=== PATIENT | male | born 1995 | race Caucasian/White ===

== ENCOUNTER 2017-01-28 10:15 | Emergency (ER) | payer SELFPAY ==
[~2017-01-28] VITALS: Ht 200.7 cm; Wt 100.3 kg
[~2017-01-28 10:15] MED LIST: TRAM50TA PO
[2017-01-28 10:23] VITALS: BP 142/65; PULSE 72; RESP 16; TEMP 97.6; O2SAT 96
[2017-01-28] MEDS ORDERED: DICY20TA10 PO (10:52)
[2017-01-28] MEDS ORDERED: ZOFR4TAB3 SL (10:52)
--- NOTE | 2017-01-28 10:53 | PD ---
HPI Chief Complaint: Abdominal Pain Time Seen by Provider: 10:42 Travel History International Travel<30 days: No Contact w/Intl Traveler<30days: No Traveled to known affect area: No History of Present Illness HPI This 21-year-old male is complaining of abdominal pain and vomiting. He was having abdominal pain throughout the day yesterday. Is fairly constant pain that is worse when he coughs. He says he gets this quite often. He says he gets IT twice a month he's been told that he has a family history of stomach issues. He generally takes a nausea pill when he gets these symptoms. He says that he woke up at 8:00 this morning and have a lot of vomiting. PFSH Past Medical History ADHD: Yes Asthma: Yes Anxiety: No Depression: No Cancer: No Cardiovascular Problems: No Developmental Delay: No Diabetes: No Diminished Hearing: No Genitourinary: No Hiatal Hernia: No Musculoskeletal: No Neurologic: No Psychiatric: No Respiratory: No Immunizations Current: Yes Seizures: No Thyroid Disease: No Ulcer: No Tetanus Vaccination: < 5 Years Influenza Vaccination: Yes Past Surgical History Appendectomy: Yes Other Surgery: No Social History Alcohol Use: No Tobacco Use: Yes (1 PPD) Substance Use: Yes (marjuana) Allergies-Medications (Allergen,Severity, Reaction): Coded Allergies: No Known Allergies (Verified , 01/28/17) Reported Meds & Prescriptions Reported Meds & Active Scripts Active Review of Systems General / Constitutional: No: Fever, Chills Eyes: No: Diploplia, Blurred Vision HENT: No: Headaches, Vertigo Cardiovascular: No: Chest Pain or Discomfort, Palpitations Respiratory: No: Cough Gastrointestinal: Positive: Nausea, Vomiting, Abdominal Pain Genitourinary: No: Dysuria, Nocturia Skin: No Rash, No Itching Neurologic: No: Weakness, Dizziness Endocrine: No: Heat Intolerance Hematologic/Lymphatic: No: Easy Bruising Physical Exam Narrative GENERAL: Well-developed male SKIN: Focused skin assessment warm/dry. HEAD: Atraumatic. Normocephalic. EYES: Pupils equal and round. No scleral icterus. No injection or drainage. ENT: No nasal bleeding or discharge. Mucous membranes pink and moist. NECK: Trachea midline. No JVD. CARDIOVASCULAR: Regular rate and rhythm. No murmur appreciated. RESPIRATORY: No accessory muscle use. Clear to auscultation. Breath sounds equal bilaterally. GASTROINTESTINAL: Abdomen soft, non-tender, nondistended. Hepatic and splenic margins not palpable. I'm able to palpate all quadrants without eliciting any guarding or rigidity. Bowel sounds are active MUSCULOSKELETAL: No obvious deformities. No clubbing. No cyanosis. No edema. NEUROLOGICAL: Awake and alert. No obvious cranial nerve deficits. Motor grossly within normal limits. Normal speech. PSYCHIATRIC: Appropriate mood and affect; insight and judgment normal. Data Data Last Documented VS Vital Signs Date Time Temp Pulse Resp B/P (MAP) Pulse Ox O2 Delivery O2 Flow Rate FiO2 01/28/17 10:23 97.6 72 16 142/65 (90) 96 Orders Orders Ondansetron Odt (Zofran Odt) (01/28/17 11:00) Dicyclomine (Bentyl) (01/28/17 11:00) [facility] Medical Decision Making Medical Screen Exam Complete: Yes Emergency Medical Condition: Yes Medical Record Reviewed: Yes Differential Diagnosis Differential includes gastritis, appendicitis, viral syndrome Narrative Course I suggested we started an IV and check blood work and give some IV antiemetics however the patient is quite insistent that he does not want IV and that this is an exacerbation of his ongoing problem. He generally gets relief with Zofran and I will prescribe some Zofran for him Diagnosis Primary Impression: Vomiting Departure Forms: Tests/Procedures, Work Release Enter return to work date: Jan 30, 2017 Scripts Dicyclomine (Dicyclomine) 20 Mg Tab 20 MG PO TID for Bowel Management, #20 TAB 0 Refills Prov: Jaspreet Babcock MD 01/28/17 Ondansetron Odt (Zofran Odt) 4 Mg Tab 4 MG SL Q6HR Y for Nausea/Vomiting for 20 Days, #20 TAB 0 Refills Prov: Jaspreet Babcock MD 01/28/17 Disposition: 01 DISCHARGE HOME Condition: Stable Jaspreet Babcock MD Jan 28, 2017 10:53
[2017-01-28] MEDS ORDERED: DICYCLOMINE HCL 10 MG CAP PO ONE (11:00)
[2017-01-28] MEDS ORDERED: ONDANSETRON ODT 4 MG TAB PO ONE (11:00)
== END 2017-01-28 11:15 | disposition home or self-care (01) ==
LOC: PHED 10:15
DX: R11.10 Vomiting, unspecified (principal); F17.200 Nicotine dependence, unspecified, uncomplicated; Z86.59 Personal history of other mental and behavioral disorders; Z87.09 Personal history of other diseases of the respiratory system
CPT/HCPCS: 99284

== ENCOUNTER 2017-06-17 09:28 | Emergency (ER) | payer SELFPAY ==
[~2017-06-17] VITALS: Ht 200.7 cm; Wt 96.7 kg
[~2017-06-17 09:28] MED LIST changes: +DICY20TA10 PO; -TRAM50TA PO; +ZOFR4TAB3 SL
[2017-06-17 09:30] VITALS: BP 152/85; PULSE 77; RESP 18; TEMP 98.4; O2SAT 97
--- NOTE | 2017-06-17 09:50 | PD ---
HPI Chief Complaint: Skin Problem Time Seen by Provider: 09:35 Travel History International Travel<30 days: No Contact w/Intl Traveler<30days: No Traveled to known affect area: No History of Present Illness HPI Patient is a 21-year-old otherwise healthy male presents emergency Department with pain and swelling to left side of his face thinks he has an infection. He states over the past 2-3 days since he got significantly worse. Denies fevers denies any dental pain. States symptoms are moderate, left-sided face, no radiation, associated symptoms as above. PFSH Past Medical History ADHD: Yes Asthma: Yes Anxiety: No Depression: No Cancer: No Cardiovascular Problems: No Developmental Delay: No Diabetes: No Diminished Hearing: No Genitourinary: No Hiatal Hernia: No Musculoskeletal: No Neurologic: No Psychiatric: No Respiratory: No Immunizations Current: Yes Seizures: No Thyroid Disease: No Ulcer: No Tetanus Vaccination: < 5 Years Past Surgical History Appendectomy: Yes Other Surgery: No Social History Alcohol Use: No Tobacco Use: Yes ([facility]) Substance Use: Yes (marjuana) Allergies-Medications (Allergen,Severity, Reaction): Coded Allergies: No Known Allergies (Verified Allergy, Unknown, 06/17/17) Reported Meds & Prescriptions Reported Meds & Active Scripts Active Bactrim DS (Sulfamethoxazole-Trimethoprim) 800-160 Mg Tab 1 Tab PO BID 7 Days Review of Systems Except as stated in HPI: all other systems reviewed are Neg Physical Exam Narrative GENERAL: Well-nourished, well-developed patient. SKIN: Focused skin assessment warm/dry. There is a left-sided fluid collection over the maxilla prominence, appears to be superficial and palpation, mild surrounding erythema. No drainage appreciated, does not extend intraorally. HEAD: Normocephalic. EYES: No scleral icterus. No injection or drainage. NECK: Supple, trachea midline. No JVD or lymphadenopathy. CARDIOVASCULAR: Regular rate and rhythm without murmurs, gallops, or rubs. RESPIRATORY: Breath sounds equal bilaterally. No accessory muscle use. GASTROINTESTINAL: Abdomen soft, non-tender, nondistended. MUSCULOSKELETAL: No cyanosis, or edema. BACK: Nontender without obvious deformity. No CVA tenderness. Data Data Last Documented VS Vital Signs Date Time Temp Pulse Resp B/P (MAP) Pulse Ox O2 Delivery O2 Flow Rate FiO2 06/17/17 09:30 98.4 77 18 152/85 (107) 97 Orders Orders Ed Poc Ultrasound (06/17/17 ) Lidocaine 1% Inj (Xylocaine 1% Inj) (06/17/17 10:00) Ed Discharge Order (06/17/17 10:19) MDM Medical Decision Making Medical Screen Exam Complete: Yes Emergency Medical Condition: Yes Differential Diagnosis Infected sebaceous cyst, abscess, cellulitis. Narrative Course Patient roomed emergency department, a bedside ultrasound confirmed fluid collection amenable to ER drainage, drained in the ER, discussed symptomatic management and return to ED criteria as well as follow-up with a plastic surgeon or primary care physician for possibility of further exploration and removal of the cyst wall. Procedures Procedure Narrative Bedside ultrasound: Soft tissue ultrasound shows superficial fluid collection around it probably consistent with an abscess or infected sebaceous cyst. Amenable to ER drainage. Minimal surrounding cobblestoning. INCISION AND DRAINAGE OF ABSCESS: The area was prepped with alcohol wipe a subcutaneous wheal of 1% % Xylocaine plain with a total number to mL was used to anesthetize the area properly. A number [11 scalpel was used to make a [0.5- cm incision across the area of the abscess. The abscess was drained, yielded pus mixed with sebum, while draining the cyst wall became expressed manually, was clamped with a simple forcep, despite gentle traction could not be completely expressed. Given that the location is on the face and there are certainly structures that are prone to damage such as blood vessels muscles and nerve endings further aggressive exploration should be done by train plastic surgeon. Patient tolerated the procedure well. Diagnosis Primary Impression: Infected sebaceous cyst of skin Med/Other Pt SpecificInfo: Prescription(s) given Scripts Sulfamethoxazole-Trimethoprim (Bactrim DS) 800-160 Mg Tab 1 TAB PO BID for Infection for 7 Days, #14 TAB 0 Refills Prov: Tuan Burns MD 06/17/17 Disposition: 01 DISCHARGE HOME Condition: Stable Tuan Burns MD Jun 17, 2017 09:50
[2017-06-17] MEDS ORDERED: LIDOCAINE HCL 1% 20 ML VIAL INFIL ONE (10:00)
[2017-06-17] MEDS ORDERED: LIDOCAINE HCL 1% 30 ML VIAL INFIL ONE (10:00)
[2017-06-17] MEDS ORDERED: BACT800T5 PO (10:18)
== END 2017-06-17 10:24 | disposition home or self-care (01) ==
LOC: PHED 09:28
DX: L72.3 Sebaceous cyst (principal); L08.9 Local infection of the skin and subcutaneous tissue, unspecified; F90.9 Attention-deficit hyperactivity disorder, unspecified type; J45.909 Unspecified asthma, uncomplicated; F17.200 Nicotine dependence, unspecified, uncomplicated
CPT/HCPCS: 10060

== ENCOUNTER 2017-07-21 11:25 | Emergency (ER) | payer MEDICAID ==
[~2017-07-21] VITALS: Ht 200.7 cm; Wt 104.0 kg
[~2017-07-21 11:25] MED LIST changes: +BACT800T5 PO; -DICY20TA10 PO; -ZOFR4TAB3 SL
[2017-07-21 11:28] VITALS: BP 125/63; PULSE 84; RESP 16; TEMP 100.1; O2SAT 100
[2017-07-21] MEDS ORDERED: ONDANSETRON ODT 4 MG TAB PO ONE (12:00)
[2017-07-21] MEDS ORDERED: RESP: ALBUTEROL 2.5 MG/IPRATROPIUM 0.5 MG NEB (SCH) NEB ONE (12:00)
[2017-07-21] MEDS ORDERED: VENTAER INH (12:38)
[2017-07-21] MEDS ORDERED: NAPR500T2 PO (12:38)
[2017-07-21] MEDS ORDERED: OSEL75 PO (12:38)
--- NOTE | 2017-07-21 12:38 | PD ---
HPI Chief Complaint: Cold / Flu Symptoms Time Seen by Provider: 11:39 Travel History International Travel<30 days: No Contact w/Intl Traveler<30days: No Traveled to known affect area: No History of Present Illness HPI 21-year-old male presents to the emergency department complaining of cold flu symptoms ongoing for the past several days. Complains of cough cold symptoms, some shortness of breath, some fevers. Symptoms been ongoing for 5 or 6 days. There were worsening so he came to the emergency department. No definite sick contacts. Multiple stomach upset. No other complaints. Does smoke tobacco. History Past Medical History Medical History: Denies Significant Hx Social History Alcohol Use: No Tobacco Use: Yes (1 PPD) Allergies-Medications (Allergen,Severity, Reaction): Coded Allergies: No Known Allergies (Verified Allergy, Unknown, 07/21/17) Reported Meds & Prescriptions Reported Meds & Active Scripts Active Ventolin Hfa 18 GM Inh (Albuterol Sulfate) 90 Mcg/Act Aer 2 Puff INH Q4-6H PRN Tamiflu (Oseltamivir Phosphate) 75 Mg Cap 75 Mg PO BID 5 Days Naproxen 500 Mg Tab 500 Mg PO BID Review of Systems Except as stated in HPI: all other systems reviewed are Neg Physical Exam Narrative GENERAL: Well appearing 21-year-old man, no acute distress. SKIN: Focused skin assessment warm/dry. HEAD: Atraumatic. Normocephalic. HEENT: Normal ears, little redness in the right TM. Oropharynx is minimally injected, otherwise normal. No significant cervical adenopathy. No meningismus. CARDIOVASCULAR: Regular rate and rhythm. No murmur appreciated. RESPIRATORY: No respiratory distress. Faint wheezing throughout the posterior lung farley. GASTROINTESTINAL: Abdomen soft, non-tender, nondistended. Hepatic and splenic margins not palpable. MUSCULOSKELETAL: No obvious deformities. No clubbing. No cyanosis. No edema. NEUROLOGICAL: Awake and alert. No obvious cranial nerve deficits. Motor grossly within normal limits. Normal speech. PSYCHIATRIC: Appropriate mood and affect; insight and judgment normal. Data Data Last Documented VS Vital Signs Date Time Temp Pulse Resp B/P (MAP) Pulse Ox O2 Delivery O2 Flow Rate FiO2 07/21/17 11:28 100.1 84 16 125/63 (83) 100 Room Air Orders Orders Ondansetron Odt (Zofran Odt) (07/21/17 12:00) Albuterol-Ipratropium Neb (Duoneb Neb) (07/21/17 12:00) Influenzae A/B Antigen (07/21/17 11:49) MDM Medical Decision Making Medical Screen Exam Complete: Yes Emergency Medical Condition: Yes Interpretation(s) Influenza negative. Differential Diagnosis URI, pneumonia, bronchitis, influenza, other Narrative Course Medical decision making 21-year-old male presents emergency department with wheezing, bronchitis symptoms, flulike symptoms. Looks otherwise well. Will check flu swab, breathing treatments. Diagnosis Primary Impression: Influenza-like illness Additional Instructions: Use Zofran if needed for nausea or vomiting. Take naproxen as a for fever or body aches. You can return to work after you have had no fever for 24 hours. Drink plenty of fluids to stay well-hydrated. Follow-up with your primary doctor if you are not completely well in 7-10 days. Return to the emergency department for any worsening chest pain, trouble breathing, or any other new or worsening symptoms. Med/Other Pt SpecificInfo: Prescription(s) given Scripts Albuterol 18 GM Inh (Ventolin Hfa 18 GM Inh) 90 Mcg/Act Aer 2 PUFF INH Q4-6H Y for SHORTNESS OF BREATH, #1 INHALER 0 Refills Prov: Juan Baer MD 07/21/17 Oseltamivir (Tamiflu) 75 Mg Cap 75 MG PO BID for Mgmt Viral Infection for 5 Days, #10 CAP 0 Refills Prov: Juan Baer MD 07/21/17 Naproxen (Naproxen) 500 Mg Tab 500 MG PO BID, #10 TAB 0 Refills Prov: Juan Baer MD 07/21/17 Disposition: 01 DISCHARGE HOME Condition: Stable Juan Baer MD Jul 21, 2017 12:38
[2017-07-21 13:18] VITALS: TEMP 101.9
== END 2017-07-21 13:19 | disposition home or self-care (01) ==
LOC: NEPD 11:25
DX: J11.1 Influenza due to unidentified influenza virus with other respiratory manifestations (principal); R05 Cough; R06.02 Shortness of breath; R06.2 Wheezing; R50.9 Fever, unspecified; K30 Functional dyspepsia; F17.200 Nicotine dependence, unspecified, uncomplicated
CPT/HCPCS: 87804; 94664; 99283